=== PATIENT | male | born 1945 | race Caucasian/White ===

== ENCOUNTER 2018-03-05 08:50 | Inpatient (IN) | payer OTHER ==
[~2018-03-05] VITALS: Ht 172.7 cm; Wt 84.0 kg
[~2018-03-05 08:50] MED LIST: ADULT LOW DOSE81 M1 PO; ALLEGRA180 MG PO; AMBIEN10 MG PO; AMLODIPINE-BEN1 EACH PO; Ascorbic Acid,Ester- PO; BRAND FLOMAX0.4 MG PO; CELEBREX100 MG PO; CELEBREX200 MG PO; DAILY MULTIPLE1 EACH PO; FISH OIL 1,2001 EAC4 PO; FLOMAX0.4 MG PO; FLONASE16 GM NS; GLUCOSAMINE CHONDROI PO; ISOSORBIDE MONO30 MG PO; LOTREL 10/21 CAPSULE PO; METAMUCIL C1 CAPSULE PO; METAMUCIL0.52 GM PO; METFORMIN; METOPROLOL SUCC25 MG PO; MOVE FREE JOIN1 EACH PO; NIACIN FLUSH F1 EACH PO; Niacin PO; Omega III EPA + DHA PO; PRILOSEC20 MG PO; SIMVASTATIN; SIMVASTATIN20 MG PO; SIMVASTATIN5 MG PO; Selenium PO; TYLENOL SINUS1 EA16 PO; Theragran-M,Centrum, PO; ULTRAM50 MG PO; VITAMIN D31000 UNIT PO; Vitamin D PO
== END 2018-03-05 14:54 | disposition short-term general hospital (02) | DRG 287 ==
LOC: CATH 08:50 → ENRESERV 11:49 → 2SOUTH 11:50 → ENRESERV 12:18 → CANRESERV 12:18 → 2SOUTH 14:54
PROVIDERS: Internal Medicine Cardiovascular Disease
DX: I25.119 Atherosclerotic heart disease of native coronary artery with unspecified angina pectoris (principal); I11.9 Hypertensive heart disease without heart failure; E78.5 Hyperlipidemia, unspecified; E11.9 Type 2 diabetes mellitus without complications; K22.70 Barrett's esophagus without dysplasia; M19.90 Unspecified osteoarthritis, unspecified site; Z79.82 Long term (current) use of aspirin
CPT/HCPCS: 82948; C1769; C1887; J1200; J1644; J2250; J2765; J2930; J3010; J7040